=== PATIENT | female | born 1995 | race Caucasian/White ===

== ENCOUNTER 2017-02-18 20:00 | Inpatient (IN) | payer OTHER ==
--- NOTE | ~2017-02-18 | HP ---
Unit #: [id number] #: [id number] Patient: MEGGAN LIN [id number] [place] [address] [id number] MR#: [id number] NAME: MEGGAN LIN ROOM: P256 Age: 21 Sex: F Admission Date: 02/19/2017 : 1995 Attending Physician: Tavon Tellez M.D. Admitting Physician: Tavon Tellez M.D. Primary Care Physician: Primary Care Physician No HISTORY AND PHYSICAL HISTORY OF PRESENT ILLNESS Meggan is a 21 year old admitted to [address] [place] [address] with depression and self-harming behavior. She has been cutting on her leg. PAST MEDICAL HISTORY Nothing significant. PAST SURGICAL HISTORY 1. T and A. 2. D and C. ALLERGIES No known drug allergies. SOCIAL HISTORY She does not smoke. Drinks alcohol on occasion. Admits to using marijuana on occasion. FAMILY HISTORY Medically noncontributory. REVIEW OF SYSTEMS CONSTITUTIONAL: No fever or chills. HEENT: Denies any sore throat, ear pain or runny nose. CARDIOVASCULAR: Denies chest pain, irregular heart rhythm or palpitations. CHEST: Denies shortness of breath or cough. No hemoptysis. GASTROINTESTINAL: Denies nausea, vomiting, diarrhea or chronic constipation. ENDOCRINE: Denies history of increased thirst or urination. No recent significant weight loss or gain. GENITOURINARY: Denies dysuria, frequency, or hematuria. SKIN: Denies any rashes. HEMATOLOGIC: Denies history of increased bleeding or bruising. MUSCULOSKELETAL: Denies any hot, swollen joints. No generalized muscle pain. NEUROLOGIC: Denies problems with vision or speech. No frequent, severe headaches. No numbness, tingling or weakness in any extremities. Denies loss of bladder or bowel control. CURRENT MEDICATIONS 1. Iroquois 300 mg b.i.d. 2. Celexa 20 mg daily. 3. Desyrel 100 mg q.h.s. p.r.n. Unit #: [id number] #: [id number] Patient: MEGGAN LIN 4. Milk of Magnesia p.r.n. 5. Maalox p.r.n. 6. Tylenol p.r.n. PHYSICAL EXAMINATION GENERAL: Alert, well-nourished, in no apparent distress. VITAL SIGNS: Blood pressure 114/72, heart rate 92, respirations 16, temperature 98.6. WEIGHT: 160. HEIGHT: 5 feet 3 inches. SKIN: Warm and dry without rash. She has significant scratches/cuts along her right inner thigh. She has carved the word "whore." There is no increased redness, swelling, heat or pus noted. HEENT: Normocephalic. TMs not viewed. Oral and nasal passages clear. Conjunctivae clear. PERRLA. EOMs intact. NECK: Supple without lymphadenopathy or thyromegaly. HEART: Regular rate and rhythm without murmur. LUNGS: Clear. ABDOMEN: Soft, nontender. : Not done. EXTREMITIES: No evidence of cyanosis, clubbing or edema. Moves all without focal deficit. NEUROLOGICAL: Grossly within normal limits. Cranial Nerves: II: Visual evans are intact. III, IV AND : Extraocular movements are intact. Pupils are equal, round and reactive to light. V: Facial sensation is grossly normal. VII: Facial movements and expression are normal. VIII: Auditory acuity grossly intact. IX, X: Uvula is midline. Phonation is normal. XI: Patient shrugs shoulders and turns head normally. XII: Tongue protrudes in the midline. Sensory and Motor Function: Sensory and motor sensation is grossly normal. Motor: moves all extremities well. Coordination: Gait is normal. Deep Tendon Reflexes: Intact. IMPRESSION 1. Psychiatric admission. 2. Self-harming behavior sustained prior to this admission. RECOMMENDATIONS PSYCHIATRIC: Per psychiatrist. MEDICAL: 1. See no contraindication to participate in facility's activities. 2. Keep the scratches clean with soap and water. MEDICAL PROGNOSIS Good. MEDICAL CONDITION Stable. Dictated by... Maru Del Real P.A.-C. for [place] M.D. Unit #: [id number] #: [id number] Patient: MEGGAN LINGIANNA/kianna TD: 02/19/2017 17:57 JOB #: [id number] HISTORY AND PHYSICAL Page 1 of 1 X Maru Del Real HISTORY AND PHYSICAL
--- NOTE | ~2017-02-18 | PN ---
Unit #: [id number] #: [id number] Patient: JERSON LIN [id number] [facility] [address] [place] [address] [id number] I MR#: [id number] NAME: JERSON LIN ROOM: P256 Age: 21 Sex: F Admission Date: 02/19/2017 : 1995 Attending Physician: Tavon Tellez M.D. Admitting Physician: Tavon Tellez M.D. Primary Care Physician: Primary Care Physician No MADELINE PROGRESS NOTES DATE OF SERVICE 02/23/2017 DISCUSSION Ms. Phillips is a 21-year-old white female who was seen today. Chart was reviewed and case was discussed with the staff. She has been doing fairly well with no agitation or irritability and has been reporting improvement in her depressive symptoms. Meanwhile, she has been taking the medications and tolerating them fairly well with no reported side effects. MENTAL STATUS EXAMINATION Young white female who is casually dressed with fair personal hygiene and appears to be in no acute distress or discomfort. She was awake and alert on interaction with intact orientation. Her mood is anxious with a congruent affect. She denies any suicidal or homicidal ideations. Her insight and judgment remain slightly impaired. TREATMENT PLAN 1. We will continue her on her current treatment protocol. We will monitor her response to the medications and make further adjustments as needed. 2. We will continue to follow up. Dictated by... Tavon Tellez M.D. IAA/torig TD: 02/24/2017 11:22 JOB #: [id number] [facility] PROGRESS NOTES Page 1 of 1 X Tavon Tellez MD X PROGRESS NOTE
--- NOTE | ~2017-02-18 | PN ---
Unit #: [id number] #: [id number] Patient: JERSON LIN [id number] [facility] [address] [place] [address] [id number] I MR#: [id number] NAME: JERSON LIN ROOM: [facility] Age: 21 Sex: F Admission Date: 02/19/2017 : 1995 Attending Physician: Tavon Tellez M.D. Admitting Physician: Tavon Tellez M.D. Primary Care Physician: Primary Care Physician Pauline CORREA PROGRESS NOTES DATE February 21, 2017 DISCUSSION Ms. Phillips is a 21-year-old white female, who was seen today and chart was reviewed and the case was discussed with the staff. She has been anxious, withdrawn, and rather seclusive to herself although has been compliant with the treatment recommendations and has been taking the medications, including Celexa, lithium, and tolerating them fairly well. MENTAL STATUS EXAMINATION Young white female, who was casually dressed with fair personal hygiene, and appears to be in no acute distress or discomfort. The patient was awake and alert on interaction with intact orientation. Her mood was anxious with a congruent affect. The patient denies any suicidal or homicidal ideations. Her insight and judgment remain slightly impaired. TREATMENT PLAN 1. We will continue her on her current medications and treatment protocol, and will monitor her response to the medications, and make further adjustments as needed. 2. We will continue to followup. Dictated by... Sajan Jasmine/maira TD: 02/21/2017 10:50 JOB #: [id number] Unit #: [id number] #: [id number] Patient: JERSON LIN PROGRESS NOTES Page 1 of 1 X Tavon Tellez MD PROGRESS NOTE
--- NOTE | ~2017-02-18 | DS ---
Unit #: [id number] #: [id number] Patient: JERSON LIN [id number] [facility] [address] [place] [address] [id number] I MR#: [id number] NAME: JERSON LIN ROOM: [facility] Age: 21 Sex: F Admission Date: 02/19/2017 : 1995 Discharge Date: Attending Physician: Tavon Tellez M.D. Primary Care Physician: Primary Care Physician No DISCHARGE SUMMARY IDENTIFYING DATA Ms. Phillips is a 21-year-old single white female, who is a resident of [place], [place], and was transferred to us from [facility]. DISCHARGE DIAGNOSES Psychiatric: Bipolar disorder, most recent episode depressed, recurrent, moderate, without psychotic features. Medical: None. Stressors: Moderate psychosocial stressors. HISTORY OF PRESENT ILLNESS Please see initial psychiatric evaluation for details. PAST PSYCHIATRIC HISTORY Please see initial psychiatric evaluation for details. PAST MEDICAL HISTORY Please see initial psychiatric evaluation for details. HOSPITAL COURSE The patient [facility] and was oriented to the hospital environment. Routine p.r.n. medications were initiated, and she was started back on her home medications and medications were adjusted and she was closely monitored. She was taking the medications regularly and was tolerating them fairly well and was able to show a decent and therapeutic response and as such, it was decided that she will be discharged home and will continue treatment on an outpatient basis. DISCHARGE MEDICATIONS Celexa 20 mg a day for depression and lithium 200 mg b.i.d. for depression. DISCHARGE CONDITION Stable. PROGNOSIS Fair. Dictated by... Tavon Tellez M.D. IAA/modl Unit #: [id number] #: [id number] Patient: JERSON LIN TD: 02/24/2017 07:05 JOB #: [id number] DISCHARGE SUMMARY Page 1 of 1 X Tavon Tellez MD X DISCHARGE SUMMARY
--- NOTE | ~2017-02-18 | PN ---
Unit #: [id number] #: [id number] Patient: JERSON LIN [id number] [facility] [address] [place] [address] [id number] I MR#: [id number] NAME: JERSON LIN ROOM: P256 Age: 21 Sex: F Admission Date: 02/19/2017 : 1995 Attending Physician: Tavon Tellez M.D. Admitting Physician: Tavon Tellez M.D. Primary Care Physician: Primary Care Physician Pauline CORREA PROGRESS NOTES DATE 02/22/2017 DISCUSSION Ms. Phillips is a 21-year-old white female who was seen today and chart was reviewed and case was discussed with the staff. She has been anxious, withdrawn and rather seclusive to herself. Meanwhile, she has been cooperative with treatment recommendations as she has been taking the medications and tolerating them fairly well with no reported side effects. MENTAL STATUS EXAMINATION Young white female who was casually dressed with fair personal hygiene, appears to be in no acute distress or discomfort. She was awake and alert on interaction with intact orientation. Her mood was anxious with congruent affect. She denies any suicidal or homicidal ideations. Her insight and judgement remains slightly impaired. TREATMENT PLAN 1. We will continue her on her current medications and treatment protocol. We will monitor her response to the medication and make further adjustments as needed. 2. We will continue to follow up. Dictated by... Sajan Jasmine/elidia TD: 02/23/2017 03:37 JOB #: [id number] Unit #: [id number] #: [id number] Patient: JERSON LIN PEAWILLIAN PROGRESS NOTES Page 1 of 1 X Tavon Tellez MD PROGRESS NOTE
--- NOTE | ~2017-02-18 | CO ---
Unit #: [id number] #: [id number] Patient: JERSON LIN [id number] [place] [address] [id number] I MR#: [id number] NAME: JERSON LIN ROOM: P256 Age: 21 Sex: F Admission Date: 02/19/2017 : 1995 Attending Physician: Tavon Tellez M.D. Primary Care Physician: Primary Care Physician No Consultation Date: 02/19/2017 CONSULTATION REPORT SUBJECTIVE Ms. Broderick was admitted with self-inflicted scratches to her thigh. This area was examined and described under her admission H and P dated, 02/19/2017. We were also asked to see her for "abnormal urinalysis." Her admission urine showed trace bacteria. We will go ahead and treat with Bactrim DS one p.o. b.i.d. x3 days. Dictated by... Maru Del Real P.A.-C. for Sajan June/cherelle TD: 02/20/2017 02:17 JOB #: [id number] CONSULTATION REPORT Page 1 of 1 X Maru Del Real CONSULTATION REPORT
--- NOTE | ~2017-02-18 | PA ---
Unit #: [id number] #: [id number] Patient: JERSON LIN [id number] [facility] [address] [place] [address] [id number] I MR#: [id number] NAME: JERSON LIN ROOM: P256 Age: 21 Sex: F Admission Date: 02/19/2017 : 1995 Date of Assessment: 02/19/2014 Attending Physician: Tavon Tellez M.D. Admitting Physician: Tavon Tellez M.D. Primary Care Physician: Primary Care Physician No PSYCHIATRIC ASSESSMENT DATE OF SERVICE 02/19/2017. IDENTIFYING DATA Ms. Phillips is a 21-year-old single white female, who is a resident of [place], [place], and was transferred to us from [facility]. CHIEF COMPLAINT Increasing depression. HISTORY OF PRESENT ILLNESS Ms. Phillips is a 21-year-old white female, who was referred for assessment by suicide hotline where she called in acute distress today following verbal altercation with his significant other and stated that she has long history of depression and bipolar and PTSD, and has been decompensating since losing her job approximately a month ago and leading to her to resume cutting herself after a long period of abstaining from self-harming behavior and now researching and planning her suicide. The patient reports she lost her job 4 weeks ago and has not had much luck finding a new job and she has a history of quitting jobs due to being overwhelmed and reports that she does not plan to go back to school and that she lives with her boyfriend and roommate and they have no problem with situation expect that her boyfriend has to work 80 hours a week to pay for what she cannot pay for herself due to losing her job and reports she lost 2 friends in 2016, and one to the suicide and she also has had miscarriage in the past year which she added to her depression and reports no source of income and this has placed additional stress and feelings of guilt due to her boyfriend having to earn more to make up the lost income from her being fired and the patient reports gynecological symptoms since having an IUD placed and that she had to remove the IUD herself due to not having insurance and she reports that she is alienated from her family of origin and has no support system and reports that she at an early age for all the wrong reasons and is in the process of getting divorce at this time. The patient reports she attempted to enlist in the [employer], but was turned down due to history of PTSD. She was seen to be significant danger to herself and apparently has written the word whore on her thigh using a blade and was expressing active suicidal intent and as such, recommendation for inpatient level of care for safety and stabilization was made and the patient was transferred to us. SUBSTANCE ABUSE HISTORY Unit #: [id number] #: [id number] Patient: JERSON LIN The patient reports occasional experimentation with alcohol and cannabis, but denies any regular drug abuse. PAST PSYCHIATRIC HISTORY The patient has had history of multiple inpatient psychiatric hospitalizations at [facility] and she has received outpatient treatment as an adolescent as well and has been diagnosed and treated for bipolar disorder and reports that she is currently going through divorce and has been staying with her boyfriend and roommate. MENTAL STATUS EXAMINATION Young white female who was casually dressed with fair personal hygiene, appears to be in no acute distress or discomfort. She was awake and alert on interaction with intact orientation to time, place, and person. Her mood was anxious and depressed with a congruent affect. Her speech was slow and restricted in content. Her thought processes were disorganized with some looseness of associations and flight of ideas and suicidal ideations. Her insight and judgment remain significantly impaired. DIAGNOSTIC IMPRESSION Psychiatric: Bipolar disorder, most recent episode depressed, recurrent, moderate, without psychotic features. Medical: None. Stressors: Moderate psychosocial stressors. TREATMENT PLAN 1. The patient has presented with history of mood disorder, and has been decompensating and will need inpatient hospitalization for safety and stabilization. We will start her back on her home medications. We will adjust the medications and monitor response. 2. Supportive therapy was provided to the patient. 3. Safe, structured, and nourishing environment will be provided. ESTIMATED LENGTH OF STAY 5 to 7 days. ABILITY TO HELP SELF Limited. WILLINGNESS TO HELP SELF The patient appears to be willing to help self. STRENGTHS 1. Communicative. 2. Cooperative. PROBLEMS 1. Chronic dysphoric symptoms. 2. Poor social support system. DISCHARGE CRITERIA This will be contingent upon the patient's ability to show resolution of her depression and anxiety and her ability to stay safe to herself, particularly after discharge from the hospital. Dictated by... Tavon Tellez M.D. Unit #: [id number] #: [id number] Patient: JERSON LIN RACHELLE/modl TD: 02/19/2017 07:59 JOB #: [id number] PSYCHIATRIC ASSESSMENT Page 1 of 1 X Tavon Tellez MD X PSYCHIATRIC ASSESSMENT
--- NOTE | ~2017-02-18 | PN ---
Unit #: [id number] #: [id number] Patient: JERSON LIN [id number] [facility] [address] [place] [address] [id number] MR#: [id number] NAME: JERSON LIN ROOM: [facility]6 Age: 21 Sex: F Admission Date: 02/19/2017 : 1995 Attending Physician: Tavon Tellez M.D. Admitting Physician: Tavon Tellez M.D. Primary Care Physician: Primary Care Physician Pauline CORREA PROGRESS NOTES DATE 02/19/2017 DISCUSSION case was discussed with the staff. She remains anxious, withdrawn and rather seclusive to herself. Meanwhile, she has been cooperative with treatment recommendations and has been taking medications and tolerating them fairly well. MENTAL STATUS EXAMINATION Young white female who was casually dressed with fair personal hygiene and appears to be in no acute distress or discomfort. She was awake and alert on interaction with intact orientation. Her mood was anxious with congruent affect. She denies any suicidal or homicidal ideation. Her insight and judgement remains slightly impaired. TREATMENT PLAN 1. Will continue on current medications and treatment protocol. Will monitor her response to the medications and make further adjustments as needed. 2. Will continue to follow up. Dictated by... Tavon Tellez M.D. IAA/kianna TD: 02/19/2017 20:56 JOB #: [id number] Unit #: [id number] #: [id number] Patient: JERSON LIN PEAWILLIAN PROGRESS NOTES Page 1 of 1 X Tavon Tellez MD X PROGRESS NOTE
--- NOTE | ~2017-02-18 | PN ---
Unit #: [id number] #: [id number] Patient: JERSON LIN [id number] [facility] [address] [place] [address] [id number] I MR#: [id number] NAME: JERSON LIN ROOM: P256 Age: 21 Sex: F Admission Date: 02/19/2017 : 1995 Attending Physician: Tavon Tellez M.D. Admitting Physician: Tavon Tellez M.D. Primary Care Physician: Primary Care Physician Pauline CORREA PROGRESS NOTES DATE 02/20/2017 DISCUSSION Ms. Phillips is a 21-year-old white female who was seen today and chart was reviewed and case was discussed with the staff. She has been anxious, withdrawn, rather seclusive to herself. Meanwhile, she has been cooperative with treatment recommendations and has been taking medications and tolerating them fairly well with no reported side effects. MENTAL STATUS EXAMINATION Young white female who was casually dressed with fair personal hygiene and appears to be in no acute distress or discomfort. She was awake and alert on interactions with intact orientation. Her mood was anxious with congruent affect. She denies any suicidal or homicidal ideations. Her insight and judgement remains slightly impaired. TREATMENT PLAN 1. Will continue on current medications and treatment protocol and will monitor her response to the medications and make further adjustments as needed. 2. Will continue to follow up. Dictated by... Sajan Jasmine/kianna TD: 02/20/2017 22:06 JOB #: [id number] Unit #: [id number] #: [id number] Patient: JERSON LIN PROGRESS NOTES Page 1 of 1 X Tavon Tellez MD X PROGRESS NOTE
[2017-02-19 09:55] LABS: BASOPHIL# 0.1 X10e3 (0-0.3); BASOPHIL% 0.5 % (0-2.5); EOSINOPHIL# 0.1 X10e3 (0-0.7); EOSINOPHIL% 0.8 % (0.0-7.0); HEMOGLOBIN 14.4 gm/dL (12.0-16.0); LYMPHOCYTE% 27.7 % (17.0-45.0); MEAN CELL VOLUME 89.7 FL (83-96); MEAN CORPUSCULAR HEMOGLOBIN 29.4 PG (28-34); MEAN CORPUSCULAR HGB CONC 32.7 g/dL (30-36); MEAN PLATELET VOLUME 8.5 FL (6.5-11.5); MONOCYTE# 1.1 X10e3 (0-1.0); MONOCYTE% 7.4 % (3.0-12.0); NEUTROPHIL# 9.1 X10e3 (1.5-7.1); NEUTROPHIL% 63.6 % (40-75); PLATELET COUNT 408 X10e3 (140-420); RED CELL DISTRIBUTION WIDTH 13.1 % (11.0-15.5); WHITE BLOOD COUNT 14.3 X10e3 (4.0-10.5)
[2017-02-19 10:00] LABS: DIFF IND NO
[2017-02-19 10:10] LABS: ALBUMIN SERUM 4.9 g/dL (3.5-5.0); BILIRUBIN,TOTAL 0.6 mg/dL (0.2-2.0); BUN/CREATININE RATIO 21.25; CALCIUM SERUM 9.8 mg/dL (8.4-10.2); CREATININE SERUM 0.8 mg/dL (0.6-1.4); GLOM FILT RATE Estimated 104.7 mL/min (>60); POTASSIUM 4.6 mmol/L (3.5-5.1); PROTEIN TOTAL SERUM 7.4 g/dL (6.0-8.3)
== END 2017-02-24 14:00 | disposition home or self-care (01) | DRG 885 ==
LOC: P2L 02-19 00:35
PROVIDERS: Psychiatry & Neurology Psychiatry
DX: F33.1 Major depressive disorder, recurrent, moderate (principal); F41.9 Anxiety disorder, unspecified
CPT/HCPCS: 80053; 84703; 85025